=== PATIENT | male | born 1975 | race Caucasian/White ===

== ENCOUNTER 2019-04-16 08:43 | Emergency (ER) | payer OTHER ==
--- NOTE | 2019-04-16 10:47 | RAD ---
LEFT KNEE 4 VIEWS: INDICATION: Left knee pain. INDICATION: Injury. COMPARISON: None. FINDINGS: There is joint capsular distention. No acute fracture or subluxation is evident. IMPRESSION: Joint capsular distention without acute osseous abnormality. If there is concern for internal derang ement, followup MRI of the left knee would be helpful for further characterization. POS: [facility]
== END 2019-04-16 10:16 | disposition home or self-care (01) ==
LOC: NAV ERS 08:43
DX: S83.92XA Sprain of unspecified site of left knee, initial encounter (principal); I10 Essential (primary) hypertension; F17.220 Nicotine dependence, chewing tobacco, uncomplicated; Z79.899 Other long term (current) drug therapy; W01.198A Fall on same level from slipping, tripping and stumbling with subsequent striking against other object, initial encounter